=== PATIENT | female | born 1970 | race Caucasian/White ===

== ENCOUNTER 2016-07-27 09:09 | Inpatient (IN) | payer OTHER ==
[2016-07-27] MEDS ORDERED: ONDANSETRON 4 MG/2 ML VIAL ONE ×2 (09:15→14:43)
--- NOTE | 2016-07-27 09:27 | PDOC ---
History of Present Illness - General History Source: Patient Exam Limitations: No Limitations - History of Present Illness Initial Comments: 07/27/16 11:14 The patient is a 46 year old female with a significant past medical history of pancreatitis, Hepatitis C and HIV (no change in medication) who presents to the ED, via EMS, who presents to the ED with complaints of constant abdominal pain and persistent vomiting for a week. The patient reports diffuse abdominal pain that has progressively worsened in her lower quadrant. Patient reports her abdominal pain radiates to her lower back. She describes the pain as a knife stabbing her. Patient notes diaphoresis secondary to pain. She also reports multiple episodes of vomiting persistent of white and yellow sputum. She states her stool is soft and watery. The patient reports her symptoms are worsened secondary to eating. Patient states the last time she had pancreatitis was 3-4 years ago. The patient had an appointment with Dr. Bray later today to check her pancreas but came into the ED secondary to pain. . Denies fevers or chills. Denies chest pain or shortness of breath. Denies abdominal distension or hematochezia. Allergies: Morphine (rashes), shellfish. Last Menstrual period: 8 years ago secondary to early menopause <Joseph Baeza - Last Filed: 07/27/16 13:53> <Moe Bullock - Last Filed: 07/31/16 09:12> - General Chief Complaint: Pain, Acute Stated Complaint: ABD PAIN Time Seen by Provider: 07/27/16 09:18 Past History <Joseph Baeza - Last Filed: 07/27/16 13:53> - Past Medical History Anemia: No Asthma: No Cancer: No Cardiac Disorders: No CVA: No COPD: No CHF: No Dementia: No Diabetes: No GI Disorders: Yes (pancreatitis) Disorders: No HTN: No Hypercholesterolemia: No HIV: Yes Liver Disease: Yes Psychiatric Problems: Yes (Multiple hospitalizations since age 11.) Seizures: No Thyroid Disease: No Other medical history: hiatial hernia - Surgical History Abdominal Surgery: No Appendectomy: No Cardiac Surgery: No Cholecystectomy: No Lung Surgery: No Neurologic Surgery: No Orthopedic Surgery: Yes (L. Knee) - Psycho/Social/Smoking Cessation Hx Anxiety: Yes Suicidal Ideation: No Smoking Status: Yes Smoking History: Current every day smoker Have you smoked in the past 12 months: Yes Number of Cigarettes Smoked Daily: 20 If you are a former smoker, when did you quit?: 03/15/2013 Cigars Per Day: 0 Information on smoking cessation initiated: No 'Breaking Loose' booklet given: 07/14/12 Hx Alcohol Use: No Drug/Substance Use Hx: Yes Substance Use Type: Marijuana Hx Substance Use Treatment: No <Moe Bullock - Last Filed: 07/31/16 09:12> - Past Medical History Allergies/Adverse Reactions: Allergies Allergy/AdvReac Type Severity Reaction Status Date / Time iodine Allergy Swelling Verified 07/27/16 09:12 morphine Allergy Hives Verified 07/27/16 09:12 shellfish derived Allergy Swelling Verified 07/27/16 09:12 Home Medications: Ambulatory Orders Emtricitab/Rilpiviri/Tenof Ala [Odefsey Tablet] 200 tab PO HS 07/27/16 Omeprazole 40 mg PO DAILY 07/27/16 Review of Systems - Review of Systems Able to Perform ROS?: Yes Comments:: 07/27/16 11:14 CONSTITUTIONAL: + diaphoresis No reported: Fever, Chills, Generalized Weakness, Malaise, Loss of Appetite HEENT: No reported: Rhinorrhea, Nasal Congestion, Throat Pain, Throat Swelling, Difficulty Swallowing, Mouth Swelling, Ear Pain, Eye Pain, Visual Changes CARDIOVASCULAR: No reported: Chest Pain, Syncope, Palpitations, Irregular Heart Rate, Lightheadedness, Peripheral Edema RESPIRATORY: No reported: Cough, Shortness of Breath, SOB with Exertion, Orthopnea, Wheezing , Stridor, Hemoptysis GASTROINTESTINAL: + abdominal pain, nausea, vomiting, diarrhea No reported: Abdominal Distension, Constipation, Melena, Hematochezia GENITOURINARY: No reported: Dysuria, Frequency, Urgency, Hesitancy, Flank Pain, Genital Pain MUSCULOSKELETAL: No reported: Myalgia, Arthralgia, Joint Swelling, Back pain, Neck Pain SKIN: No reported: Rash, Itching, Pallor HEMEATOLOGIC/IMMUNOLOGIC: No reported: Easy Bleeding, Easy Bruising, Lymphadenopathy, Frequent infections ENDOCRINE: No reported: Unexplained Weight Gain, Unexplained Weight Loss, Heat Intolerance , Cold Intolerance NEUROLOGIC: No reported: Headache, Focal Weakness, Paresthesias, Vertigo, Lightheadedness, Unsteady Gait, Seizure, Mental Status Changes, Incontinence PSYCHIATRIC: No reported: Anxiety, Depression All Other Systems: Reviewed and Negative <Joseph Baeza - Last Filed: 07/27/16 13:53> *Physical Exam - Vital Signs Last Vital Signs Temp Pulse Resp BP Pulse Ox 97.8 F 85 20 158/85 99 07/27/16 09:12 07/27/16 09:12 07/27/16 09:12 07/27/16 09:12 07/27/16 09:12 - Physical Exam Comments: 07/27/16 11:14 GENERAL: + appears uncomfortable. The patient is awake, alert, and fully oriented, Nontoxic. HEAD: Normocephalic, atraumatic. EYES: extraocular movements intact, sclera anicteric, conjunctiva clear. ENT: Normal voice, Moist mucous membranes. NECK: Normal range of motion, supple LUNGS: Breath sounds equal, clear to auscultation bilaterally. No wheezes, no rhonchi, no rales. HEART: Regular rate and rhythm, without murmur, rub or gallop. ABDOMEN: + Diffuse mid abdominal tenderness with voluntary guarding. Soft, normoactive bowel sounds. No rebound.No CVA tenderness EXTREMITIES: Normal range of motion, no edema. No clubbing or cyanosis. No cords, erythema, or tenderness. NEUROLOGICAL: No facial assymetry, Normal speech, PSYCH: Normal mood, normal affect. SKIN: Warm, Dry, normal turgor, <Joseph Baeza - Last Filed: 07/27/16 13:53> - Vital Signs Last Vital Signs Temp Pulse Resp BP Pulse Ox 97.8 F 85 20 158/85 99 07/27/16 09:12 07/27/16 09:12 07/27/16 09:12 07/27/16 09:12 07/27/16 09:12 <Moe Bullock - Last Filed: 07/31/16 09:12> Heart Score/ECG Review - ECG Impressions Comment:: 07/27/16 11:07 Twelve-lead EKG was performed and reviewed by me. There is normal sinus rhythm with a normal rate. Rate of 66 The axis is normal. The intervals are normal. There is normal R wave progression There are no ST or T wave abnormalities. Impression: Normal twelve-lead EKG <Moe Bullock - Last Filed: 07/31/16 09:12> ED Treatment Course - LABORATORY CBC & Chemistry Diagram: 07/27/16 09:35 07/27/16 10:04 - ADDITIONAL ORDERS Additional order review: Laboratory Results 07/27/16 09:50 Lactic Acid 1.249 07/27/16 09:35 RBC 4.97 MCV 100.7 H MCHC 33.8 RDW 13.3 MPV 9.7 Neutrophils % 78.2 D Lymphocytes % 17.4 D Monocytes % 3.6 L Eosinophils % 0.3 D Basophils % 0.5 - RADIOLOGY Radiograph Interpretation: 07/27/16 13:53 RAD/ABDOMEN FLAT & UPRIGHT Impression: No free air delineated Reported by: Santiago Frausto RAD/CHEST PA & LAT Impression: No evidence of active pulmonary disease. Reported by : Errol Matthews CT/ABDOMEN & PELVIS CT W/O CONTR Impression: Distention of the stomach with contrast. It could be related to the time of ingestion of contrast but could also represent a partial gastric outlet obstruction as contrast does extend more distally including to the colon and rectum. Diffuse wall thickening of the colon suggestive of mild colitis as well is diverticulosis in the sigmoid without evidence of diverticulitis. Scattered calcifications in the tail of the pancreas suggestive of chronic pancreatitis. Reported by: Liberty Frausto - Medications Given in the ED: ED Medications Discontinued Medications Generic Name Dose Route Start Last Admin Trade Name [place] PRN Reason Stop Dose Admin Hydromorphone HCl 1 mg 07/27/16 09:43 07/27/16 10:19 Dilaudid Injection - IVPUSH 07/27/16 09:44 1 mg ONCE ONE Administration Hydromorphone HCl 1 mg 07/27/16 10:07 07/27/16 10:10 Dilaudid Injection - IM 07/27/16 10:08 1 mg ONCE ONE Administration Sodium Chloride 1,000 mls @ 1,000 mls/hr 07/27/16 09:44 07/27/16 10:19 Normal Saline - IV 07/27/16 10:43 1,000 mls/hr .Q1H ONE Administration <Joseph Baeza - Last Filed: 07/27/16 13:53> - LABORATORY CBC & Chemistry Diagram: 07/28/16 06:30 07/28/16 06:30 <Moe Bullock - Last Filed: 07/31/16 09:12> Medical Decision Making - Medical Decision Making 07/27/16 13:[address] Bray at 13:52. <Joseph Baeza - Last Filed: 07/27/16 13:53> - Medical Decision Making 07/27/16 09:45 46y F hx of HIV, HCV, pancreeatis, presents with 1 week of worsening mid abdominal pain associated with nausea/vomiting, pt states kathy feels like a sharp pain to her back. On exam pt appears uncomfortable, has voluntary garuding , rm1annn were normal. differential includes pancreatitis, kidney stones, gall stones, enteritis will treat pt sypmtomatically with Fluids/zofran/analgesics will obtain flat and upright to r/o free air will obtain labs, ekg, ua anticipate further imaging A portion of this note was documented by scribe services under my direction. I have reviewed the details of the note, within reason, and agree with the documentation with the following case summary and management plan written by me 07/27/16 11:36 pts albs were reivewed cxr and abd xray reveals no signs of free air or signs of obstruction will obtain CT abdomen to r/o acute process the pt appears more comfortable at this time no more guarding/rebound 07/27/16 13:[address] reveals distension of the stomah with contrast - differntial includes time of ingestion of contrast vs partial gastric outlet obstruction as well as mild difufse colitis- will PO challenge the patient. Suspect the pts sypmtoms may have been secondary to the prior as hte pt got the CT at less than the 2 hr valery as pt was threatening to leave. If the patient is able to tolerate oral intake will dc the pt with abx for colitis. caes dw dr. morejon - would recommend sending stool cultures and o&p. 07/27/16 14:23 pt refusing IV abx states she does not want to stay for it currently PO challenging the patient. 07/27/16 14:39 The pt unable to tolerate oral intake vomiting now will admit for further management of vomiting and possible gastric outlet syndrome will admit to hosplitalist service for further management. <Moe Bullock - Last Filed: 07/31/16 09:12> *DC/Admit/Observation/Transfer - Attestations Scribe Attestion: 07/27/16 11:14 Documentation prepared by Joseph Baeza, acting as biomedical field service engineer for Moe Bullock MD <Joseph Baeza - Last Filed: 07/27/16 13:53> - Discharge Dispostion Admit: Yes <Moe Bullock - Last Filed: 07/31/16 09:12> Diagnosis at time of Disposition: HIV (human immunodeficiency virus infection), Partial gastric outlet obstruction, Colitis - Discharge Dispostion Disposition: HOME Condition at time of disposition: Good - Referrals
[2016-07-27] MEDS ORDERED: HYDROmorphone HCL CARPU-JECT 2 MG/1 ML DISP.SYRIN IVPUSH ONE ×2 (09:43→14:40)
[2016-07-27] MEDS ORDERED: HYDROmorphone HCL CARPU-JECT 1 MG/1 ML DISP.SYRIN ONE ×3 (09:44→14:43)
[2016-07-27] MEDS ORDERED: SODIUM CHLORIDE 1,000 ML IV ONE (09:44)
[2016-07-27] MEDS ORDERED: HYDROmorphone HCL CARPU-JECT 1 MG/1 ML DISP.SYRIN IM ONE (10:07)
[2016-07-27 10:13] LABS: BASOPHIL 0.5 % (0-2.0); EOSINOPHIL 0.3 % (0-4.5); MCHC 33.8 g/dl (32.0-36.0); MEAN CELL VOLUME 100.7 fl (80-96); MEAN PLT VOLUME 9.7 fl (7.5-11.1); NEUTROPHILS 78.2 % (42.8-82.8); PLATELET COUNT 117 K/MM3 (134-434); RDW 13.3 % (11.6-15.6); WHITE BLOOD COUNT 7.9 K/mm3 (4.0-10.0)
[2016-07-27 11:01] LABS: ALBUMIN 4.9 g/dl (3.4-5.0); BILIRUBIN,TOTAL 0.4 mg/dL (0.2-1.0); CALCIUM 9.7 mg/dL (8.5-10.1); CREATININE 1.2 mg/dL (0.55-1.02)
[2016-07-27 11:02] LABS: TOT PROT 9.5 g/dl (6.4-8.2)
--- NOTE | 2016-07-27 11:46 | EKG ---
Test Reason : Blood Pressure : / mmHG Vent. Rate : 066 BPM Atrial Rate : 066 BPM P-R Int : 134 ms QRS Dur : 078 ms QT Int : 420 ms P-R-T Axes : 082 054 076 degrees QTc Int : 440 ms SINUS RHYTHM WITH MARKED SINUS ARRHYTHMIA OTHERWISE NORMAL ECG WHEN COMPARED WITH ECG OF 14-JUL-2012 17:32, NONSPECIFIC T WAVE ABNORMALITY NO LONGER EVIDENT IN ANTERIOR LEADS Confirmed by LAI CRUZ, YANET ([id number]) on 07/27/2016 11:45:52 AM Referred By: Confirmed By:YANET HOYT MD
[2016-07-27] MEDS: METRONIDAZOLE 500 MG PREMIXED 100 ML IVPB ONE ×2 (14:23→14:39)
[2016-07-27] MEDS: LEVOFLOXACIN 750 MG IVPB 150 ML IVPB ONE ×3 (14:23→17:00)
[2016-07-27] MEDS ORDERED: metroNIDAZOLE 250 MG TABLET ONE (14:29)
[2016-07-27] MEDS ORDERED: LEVOFLOXACIN 500 MG TABLET (FP) ONE (14:29)
[2016-07-27] MEDS: metroNIDAZOLE 250 MG TABLET PO ONE ×2 (14:30→14:33)
[2016-07-27] MEDS ORDERED: LEVOFLOXACIN 250 MG TABLET (FP) ONE (14:30)
[2016-07-27] MEDS: LEVOFLOXACIN 750 MG TABLET PO ONE ×2 (14:30→14:34)
[2016-07-27] MEDS ORDERED: METRONIDAZOLE 500 MG PREMIXED 100 ML IVPB ONE (14:39)
[2016-07-27] MEDS ORDERED: ONDANSETRON 4 MG/2 ML VIAL IVPB ONE (14:40)
[2016-07-27] MEDS ORDERED: LEVOFLOXACIN 750 MG IVPB 150 ML IVPB ONE (16:02)
--- NOTE | 2016-07-27 17:18 | PN ---
Teaching Attending Note Name of Resident: Roma Keenan ATTENDING PHYSICIAN STATEMENT I saw and evaluated the patient. I reviewed the resident's note and discussed the case with the resident. I agree with the resident's findings and plan as documented. Patient is c/o having abdominal pain with nausea and vomiting, no headache ,no shortness of breath Vital Signs Temperature 98.3 F 07/27/16 12:39 Pulse Rate 77 07/27/16 16:25 Respiratory Rate 19 07/27/16 16:25 Blood Pressure 135/94 07/27/16 16:25 O2 Sat by Pulse Oximetry (%) 98 07/27/16 16:25 CBCD WBC 7.9 K/mm3 (4.0-10.0) 07/27/16 09:35 RBC 4.97 M/mm3 (3.60-5.2) 07/27/16 09:35 Hgb 16.9 GM/dL (10.7-15.3) H D 07/27/16 09:35 Hct 50.0 % (32.4-45.2) H 07/27/16 09:35 MCV 100.7 fl (80-96) H 07/27/16 09:35 MCHC 33.8 g/dl (32.0-36.0) 07/27/16 09:35 RDW 13.3 % (11.6-15.6) 07/27/16 09:35 Plt Count 117 K/MM3 (134-434) L 07/27/16 09:35 MPV 9.7 fl (7.5-11.1) 07/27/16 09:35 CMP Sodium 138 mmol/L (136-145) 07/27/16 10:04 Potassium 4.1 mmol/L (3.5-5.1) 07/27/16 10:04 Chloride 101 mmol/L (98-107) 07/27/16 10:04 Carbon Dioxide 27 mmol/L (21-32) 07/27/16 10:04 Anion Gap 10 (8-16) 07/27/16 10:04 BUN 11 mg/dL (7-18) D 07/27/16 10:04 Creatinine 1.2 mg/dL (0.55-1.02) H 07/27/16 10:04 Creat Clearance w eGFR 47.95 (>60) 07/27/16 10:04 Random Glucose 122 mg/dL (74-106) H 07/27/16 10:04 Calcium 9.7 mg/dL (8.5-10.1) 07/27/16 10:04 Total Bilirubin 0.4 mg/dL (0.2-1.0) D 07/27/16 10:04 AST 28 U/L (15-37) 07/27/16 10:04 ALT 33 U/L (12-78) 07/27/16 10:04 Alkaline Phosphatase 135 U/L (45-117) H 07/27/16 10:04 Total Protein 9.5 g/dl (6.4-8.2) H 07/27/16 10:04 Albumin 4.9 g/dl (3.4-5.0) 07/27/16 10:04 Home Medications Medication Instructions Recorded Emtricitab/Rilpiviri/Tenof Ala 1 each PO DAILY #30 tablet 07/26/16 [Odefsey Tablet] ROS/PE per resident notes ASSESSMENT AND PLAN: Patient is a 46yo F admitted through [facility] ER today for evaluation of nausea, vomiting, abdominal pain and diarrhea. The patient states that this has been occurring since saturday. Patient has a PMHx of HIV , Hep C (treated), chronic pancreatitis. # Acute Dehydration On IVF now # Acute nausea & vomiting On IVF, zofran prn # Possible Colitis will monitor on CT scan , will hold off on any antibiotics for now, as per GI to hold off the antibiotic for now, discussed with # Acute Diarrhea earlier but no further diarrhea , if persists stool for cdiff and stool culture to be send # hx of smoking on nicotine patch # Hx of HIV continue meds ID on the case # Hx of Hep C treated # hx of Chronic pancreatitis DVt Px: Scds
[2016-07-27] MEDS ORDERED: ONDANSETRON 4 MG/2 ML VIAL IVPUSH PRN (17:39)
--- NOTE | 2016-07-27 17:39 | PN ---
Physical Exam: SUBJECTIVE: Patient seen and examined OBJECTIVE: Vital Signs Period Temp Pulse Resp BP Sys/Ward Pulse Ox Last 24 Hr 77 19 135/94 98 GENERAL: The patient is awake, alert, and fully oriented, in no acute distress. HEAD: Normal with no signs of trauma. EYES: PERRL, extraocular movements intact, sclera anicteric, conjunctiva clear. No ptosis. ENT: Ears normal, nares patent, oropharynx clear without exudates, moist mucous membranes. NECK: Trachea midline, full range of motion, supple. LUNGS: Breath sounds equal, clear to auscultation bilaterally, no wheezes, no crackles, no accessory muscle use. HEART: Regular rate and rhythm, S1, S2 without murmur, rub or gallop. ABDOMEN: Soft, nontender, nondistended, normoactive bowel sounds, no guarding, no rebound, no hepatosplenomegaly, no masses. EXTREMITIES: 2+ pulses, warm, well-perfused, no edema. NEUROLOGICAL: Cranial nerves II through XII grossly intact. Normal speech, gait not observed. PSYCH: Normal mood, normal affect. SKIN: Warm, dry, normal turgor, no rashes or lesions noted Active Medications Generic Name Dose Route Start Last Admin Trade Name Freq PRN Reason Stop Dose Admin Ceftriaxone Sodium 1 gm 07/28/16 10:00 Rocephin 1gm Ivpb (Pre-Docked) IVPB DAILY [facility] Protocol Hydromorphone HCl 0.5 mg 07/27/16 17:29 Dilaudid Injection - IVPB Q3H PRN PAIN Sodium Chloride 1,000 mls @ 175 mls/hr 07/27/16 17:30 Normal Saline - IV ASDIR SHARON Metronidazole 500 mg 07/27/16 22:00 Flagyl - PO BID [facility] ASSESSMENT/PLAN:
--- NOTE | 2016-07-27 17:43 | CON.GI ---
Consult Consult Specialty:: GI Referred by:: Hospitalists Reason for Consultation:: Abdominal pain - History of Present Illness Chief Complaint: "I was having abdominal pain, nauseous, vomiting and pooping alot from saturday" History of Present Illness: 46F admitted through [facility] ER today for evaluation of nausea, vomiting, abdominal pain and diarrhea. The patient states that this has been occurring since saturday. She coincidentally had an appointment to see Dr. Bray today ( having been referred by her primary Khurram Ram NP from the [facility]) however she came to the ER instead. She believes that she had an upper endoscopy some years ago that revealed a hiatal hernia. She describes chills. there have been no reported fevers since admission. There has been no diarrhea or vomiting since admission. The CT scan in the ER questioned a partial gastric outlet obstruction due to gastric distention with contrast however there appeared to be contrast in the colon and she was given Dilaudid in the ER prior to the CT scan. She denies rectal bleeding. she denies recent antibiotic use, travel or change in dietary patterns There is no family history of colorectal cancer or other GI malignancy. She has HIV on ART and denies a recent change to her medication regimen. Her current CD4 count is unclear. - History Source History Provided By: Patient Limitations to Obtaining History: No Limitations - Past Medical History Gastrointestinal: Yes: Hiatal Hernia Hepatobiliary: Yes: Hepatitis C Infectious Disease: Yes: HIV - Past Surgical History Past Surgical History: Yes: None - Alcohol/Substance Use Hx Alcohol Use: Yes (states drinking heavily, quit age 15) History of Substance Use: reports: Marijuana (briefly in past) - Smoking History Smoking history: Current every day smoker Have you smoked in the past 12 months: Yes Aproximately how many cigarettes per day: 20 If you are a former smoker, when did you quit?: 03/15/2013 - Social History Usual Living Arrangement: Other () ADL: Independent Occupation: Unemployed Place of : [place] History of Recent Travel: No Home Medications - Allergies Allergies/Adverse Reactions: Allergies Allergy/AdvReac Type Severity Reaction Status Date / Time iodine Allergy Swelling Verified 07/27/16 09:12 morphine Allergy Hives Verified 07/27/16 09:12 shellfish derived Allergy Swelling Verified 07/27/16 09:12 - Home Medications Home Medications: Ambulatory Orders Emtricitab/Rilpiviri/Tenof Ala [Odefsey Tablet] 1 tab PO HS 07/27/16 Omeprazole 40 mg PO DAILY 07/27/16 Family Disease History - Family Disease History Family Disease History: Other: Father ( 70: CT), Mother ( 62: CVA), Sister (x 2 1 with CAD, 1 with DM II), Son (1, healthy) Other Family History: No family history of colorectal cancer or other Gi malignancy Review of Systems - Review of Systems Constitutional: reports: Chills. denies: Fever, Unintentional Wgt. Loss Cardiovascular: denies: Chest Pain Respiratory: denies: Cough, SOB Gastrointestinal: reports: Abdominal Pain, Diarrhea, Nausea, Vomiting. denies: Constipation, Dysphagia, Rectal Bleeding, Vomiting Blood Physical Exam-GI Vital Signs: Vital Signs Temperature 98.3 F 07/27/16 12:39 Pulse Rate 77 07/27/16 16:25 Respiratory Rate 19 07/27/16 16:25 Blood Pressure 135/94 07/27/16 16:25 O2 Sat by Pulse Oximetry (%) 98 07/27/16 16:25 Constitutional: Yes: Calm Eyes: Yes: Sclera Icterus Cardiovascular: Yes: Regular Rate and Rhythm Respiratory: Yes: CTA Bilaterally Gastrointestinal Inspection: No: Scars ...Auscultate: Yes: Normoactive Bowel Sounds ...Palpate: Yes: Tenderness (mid abdomen). No: Guarding, Hepatomegaly, Splenomegaly, Tenderness, Rebound ...Rectal Exam: Yes: Guaiac Negative ( trace formed light brown stool in rectal vault) Problem List - Problems (1) Nausea & vomiting Assessment/Plan: Along with diarrhea No N/V/D currently ? AGE CT scan findings: I ? if this is related to opiate analgesia prior to CT scan leading to a component of gastroparesis Alp slightly elevated as well Advise: Clear liquid diet FUA in AM to assess ic contrast still in stomach / persistent gastric distention Ordered UGIS with gastrograffin for saturday Stool for C. Diff O&P, culture if diarrhea persists Obtain info re: HIV status from [facility] ALP is elevated: Check abd US Wean off opiate analgesia Code(s): R11.2 - NAUSEA WITH VOMITING, UNSPECIFIED
[2016-07-27 17:51] VITALS: BMI 19.4
--- NOTE | 2016-07-27 17:51 | HP ---
CHIEF COMPLAINT: "my stomach hurts" PCP: Dr Khurram Ram HISTORY OF PRESENT ILLNESS: This is a 46 yo F with PMH of HIV (odefsey), Hep C (treated), chronic pancreatitis and psychiatric issues, who presents due to Severe abd pain, vomiting and diarrhea. The pain has been persistantly presetn for over a week and worsened on saturday. Today she started vominting (NBNB, 10 ep) and having brown, nonbloody nonmelenous diarrhea. Her abd pain is in b/l lower quadrants, radiating to her back. it is constatnt and stabbing. She reports diaphoresis but no fever. she has not experienced these symptoms before. She deneis sick contacts or eating new foods/taking new meds. She has lost her appetite. Her last ep of pancreatitins was in 2012 at [facility]. Her GI is Dr Bray, with whom she had an apt today but came to ED instead. She has had an endoscopy a long time ago and was diagnosed with hernia (possibly hiatal). Her only home med is odefsey. She states that her viral load is undetectable. She has a chronic dry cough. She denies chest pain, sob, palpitations, LE edema, dysuria, h/a. CT abd in ED shown possible gastric outlet obstruction and mild colitis ER course was notable for: (1) ekg,labs (2)cxr, abd xr, abd ct (3)PO flagyl, IV levaquin, IVFNS, zofran Recent Travel: denies PAST MEDICAL HISTORY: as above PAST SURGICAL HISTORY: L knee carmella Social History: lives with boyfriend Smoking: current smoker 20 cig/d Alcohol: denies Drugs: occasional marijuana Family History: unknown Allergies iodine Allergy (Verified 07/27/16 09:12) Swelling morphine Allergy (Verified 07/27/16 09:12) Hives shellfish derived Allergy (Verified 07/27/16 09:12) Swelling HOME MEDICATIONS: Home Medications Medication Instructions Recorded Emtricitab/Rilpiviri/Tenof Ala 1 each PO DAILY #30 tablet 07/26/16 [Odefsey Tablet] REVIEW OF SYSTEMS CONSTITUTIONAL: Absent: fever Absent: rhinorrhea, nasal congestion, throat pain CARDIOVASCULAR: Absent: chest pain, syncope, palpitations RESPIRATORY: Absent: shortness of breath, orthopnea GASTROINTESTINAL: Absent: constipation, melena, hematochezia GENITOURINARY: Absent: dysuria, frequency, urgency MUSCULOSKELETAL: Absent: myalgia, arthralgia SKIN: Absent: rash, itching, pallor HEMATOLOGIC/IMMUNOLOGIC: Absent: frequent infections ENDOCRINE: Absent: unexplained weight gain, unexplained weight loss NEUROLOGIC: Absent: headache, focal weakness or paresthesias, dizziness PSYCHIATRIC: Absent: anxiety, depression PHYSICAL EXAMINATION Vital Signs - 24 hr 07/27/16 16:25 Pulse Rate [ 77 Apical] Respiratory 19 Rate Blood Pressure 135/94 [Right Arm] O2 Sat by Pulse 98 Oximetry (%) Laboratory Tests 07/27/16 07/27/16 07/27/16 09:35 09:50 10:04 WBC 7.9 Hgb 16.9 H D Hct 50.0 H Plt Count 117 L Neutrophils % 78.2 D Lymphocytes % 17.4 D Monocytes % 3.6 L Sodium 138 Potassium 4.1 Chloride 101 Carbon Dioxide 27 Anion Gap 10 BUN 11 D Creatinine 1.2 H Creat Clearance w eGFR 47.95 Random Glucose 122 H Lactic Acid 1.249 Calcium 9.7 Total Bilirubin 0.4 D AST 28 ALT 33 Alkaline Phosphatase 135 H Total Protein 9.5 H Albumin 4.9 Lipase 274 GENERAL: Awake, alert, and fully oriented, in no acute distress. HEAD: Normal with no signs of trauma. EYES: Pupils equal, round and reactive to light, extraocular movements intact, sclera anicteric, conjunctiva clear. EARS, NOSE, THROAT: slightly dry mucous membranes. NECK: supple LUNGS: diffusely restricted air entry, mild wheezes, bibasilar crackles HEART: Regular rate and rhythm, normal S1 and S2 ABDOMEN: Soft, moderately tender especially in lower quadrants, not distended, normoactive bowel sounds, voluntary guarding, no rebound, no masses. No hepatomegaly or splenomegaly. GILMA trace brown stool, no lesions noted, no obvious blood MUSCULOSKELETAL: No CVA tenderness. UPPER EXTREMITIES: 2+ pulses, warm, well-perfused. No cyanosis. No clubbing. No peripheral edema. LOWER EXTREMITIES: 2+ pulses, warm, well-perfused. No calf tenderness. No peripheral edema. NEUROLOGICAL: Cranial nerves II-XII grossly intact. Normal speech. PSYCHIATRIC: Cooperative. Good eye contact. SKIN: Warm, dry ASSESSMENT/PLAN: This is a 46 yo F with PMH of HIV (odefsey), Hep C (treated), chronic pancreatitis and psychiatric issues, who presents due to Severe abd pain, vomiting and diarrhea. Infectious colitis -afebrile, no leukocytosis -c diff -stool oova, parasites, gram stain, leukocytes -blood, urine culture -NPO -PO Flagyl, IV rocephin -NS @175-dehydrated -dilaudid 0.5 q 3 hr prn, would stop verna. -IV tylenol -GI consult -Carmella Contult possible gastric outlet obstruction -possibly appears that way due to opiates -consider re scanning tomorrow -NGT PRN HIV -ID consult -hold odefsey -CD4 Hep C -treated Chronic pancreatitis -no apparent flare up Psych -stable FEN NS@175 lytes stable NPO PPI, SCD Dispo: med carmella Problem List - Problem (1) Colitis Code(s): K52.9 - NONINFECTIVE GASTROENTERITIS AND COLITIS, UNSPECIFIED (2) Nausea & vomiting Code(s): R11.2 - NAUSEA WITH VOMITING, UNSPECIFIED (3) Partial gastric outlet obstruction Code(s): K31.1 - ADULT HYPERTROPHIC PYLORIC STENOSIS (4) HIV (human immunodeficiency virus infection) Code(s): Z21 - ASYMPTOMATIC HUMAN IMMUNODEFICIENCY VIRUS INFECTION STATUS (5) Abdominal pain Code(s): R10.9 - UNSPECIFIED ABDOMINAL PAIN (6) Hepatitis C Code(s): B19.20 - UNSPECIFIED VIRAL HEPATITIS C WITHOUT HEPATIC COMA Visit type - Emergency Visit Emergency Visit: Yes ED Registration Date: 07/27/16 Care time: The patient presented to the Emergency Department on the above date and was hospitalized for further evaluation of their emergent condition. - New Patient This patient is new to me today: Yes Date on this admission: 07/27/16 - Critical Care Critical Care patient: No
[2016-07-27] MEDS ORDERED: ACETAMINOPHEN 1000 MG/100 ML VIAL (NON FORMULARY) IVPB PRN (18:40)
[2016-07-27] MEDS: SODIUM CHLORIDE 1,000 ML IV SCH (18:47)
[2016-07-27] MEDS: HYDROmorphone HCL CARPU-JECT 1 MG/1 ML DISP.SYRIN IVPB PRN ×2 (18:48→22:38)
[2016-07-27] MEDS: NICOTINE 14 MG/24 HOURS TOPICAL PATCH TD SCH (18:48)
[2016-07-27] MEDS ORDERED: metroNIDAZOLE 250 MG TABLET PO SCH (22:00)
[2016-07-27 22:25] LABS: URINE APPEARANCE CLEAR; URINE BILIRUBIN NEGATIVE (NEGATIVE); URINE BLOOD NEGATIVE (NEGATIVE); URINE COLOR LTYELLOW; URINE GLUCOSE (UA) NEGATIVE (NEGATIVE); URINE KETONE NEGATIVE (NEGATIVE); URINE LEUK ESTERASE NEGATIVE (NEGATIVE); URINE NITRITE NEGATIVE (NEGATIVE); URINE PROTEIN NEGATIVE (NEGATIVE); URINE UROBILINOGEN NEGATIVE E.U./dl (0.2-1.0)
[2016-07-28] MEDS: SODIUM CHLORIDE 1,000 ML IV SCH ×3 (01:38→17:43)
[2016-07-28] MEDS: HYDROmorphone HCL CARPU-JECT 1 MG/1 ML DISP.SYRIN IVPB PRN ×5 (01:42→21:23)
[2016-07-28 09:04] LABS: ALBUMIN 3.1 g/dl (3.4-5.0); ANION GAP 11 (8-16); CALCIUM 7.8 mg/dL (8.5-10.1); CO2 23 mmol/L (21-32); GLUCOSE,RANDOM 95 mg/dL (74-106); PHOSPHOROUS 2.9 mg/dL (2.5-4.9)
[2016-07-28 09:16] LABS: CREATININE 0.9 mg/dL (0.55-1.02); MAGNESIUM 1.8 mg/dL (1.8-2.4); TOT PROT 6.3 g/dl (6.4-8.2)
[2016-07-28 09:17] LABS: ALK PHOS 87 U/L (45-117); BILIRUBIN,TOTAL 0.3 mg/dL (0.2-1.0); SGOT/AST 28 U/L (15-37); SGPT/ALT 25 U/L (12-78)
[2016-07-28 09:32] LABS: BASOPHIL 0.7 % (0-2.0); EOSINOPHIL 1.6 % (0-4.5); MCH 34.1 pg (25.7-33.7); MCHC 33.5 g/dl (32.0-36.0); MEAN CELL VOLUME 101.7 fl (80-96); MEAN PLT VOLUME 9.9 fl (7.5-11.1); NEUTROPHILS 55.7 % (42.8-82.8); RDW 13.1 % (11.6-15.6); WHITE BLOOD COUNT 6.8 K/mm3 (4.0-10.0)
[2016-07-28] MEDS ORDERED: PANTOPRAZOLE SODIUM 40 MG in SODIUM CHLORIDE 100 ML IVPB SCH (10:00)
[2016-07-28] MEDS ORDERED: cefTRIAXone 1 GM/50 ML BAG (PRE-DOCKED) IVPB SCH (10:00)
[2016-07-28] MEDS: PANTOPRAZOLE SODIUM 40 MG/100 ML PRE-DOCKED IVPB SCH (10:06)
[2016-07-28] MEDS: NICOTINE 14 MG/24 HOURS TOPICAL PATCH TD SCH (10:06)
[2016-07-28 11:13] LABS: PLATELET COMMENT2 UNABLE TO ENUMERATE; PLATELET ESTIMATE DECREASED (NORMAL)
--- NOTE | 2016-07-28 11:14 | PN ---
Progress Note (short form) - Note Progress Note: Continues to c/o having abdominal pain, going for GI series Temperature 97.8 F 07/28/16 06:00 Pulse Rate 72 07/28/16 06:00 Respiratory Rate 18 07/28/16 06:00 Blood Pressure 107/67 07/28/16 06:00 O2 Sat by Pulse Oximetry (%) 98 07/27/16 21:00 GENERAL: Awake, alert, and fully oriented, in no acute distress. HEAD: Normal with no signs of trauma. EYES: Pupils equal, round and reactive to light, EOMI, sclera anicteric, conjunctiva clear. EARS, NOSE, THROAT: slightly dry mucous membranes. NECK: supple , no JVD LUNGS: diffusely restricted air entry, mild wheezes, bibasilar crackles HEART: Regular rate and rhythm, normal S1 and S2 ABDOMEN: Soft, mild tendereness , not distended, normoactive bowel sounds, no rebound, no masses. No hepatomegaly or splenomegaly. MUSCULOSKELETAL: No CVA tenderness. EXTREMITIES: 2+ pulses, warm, well-perfused. No cyanosis. No clubbing. No peripheral edema. NEUROLOGICAL: Cranial nerves II-XII grossly intact. Normal speech. PSYCHIATRIC: Cooperative. Good eye contact. SKIN: Warm, dry, good turgor. CBCD WBC 6.8 K/mm3 (4.0-10.0) 07/28/16 06:30 RBC 4.04 M/mm3 (3.60-5.2) 07/28/16 06:30 Hgb 13.8 GM/dL (10.7-15.3) D 07/28/16 06:30 Hct 41.1 % (32.4-45.2) D 07/28/16 06:30 MCV 101.7 fl (80-96) H 07/28/16 06:30 MCHC 33.5 g/dl (32.0-36.0) 07/28/16 06:30 RDW 13.1 % (11.6-15.6) 07/28/16 06:30 Plt Count 117 K/MM3 (134-434) L 07/27/16 09:35 MPV 9.9 fl (7.5-11.1) 07/28/16 06:30 CMP Sodium 141 mmol/L (136-145) 07/28/16 06:30 Potassium 4.0 mmol/L (3.5-5.1) 07/28/16 06:30 Chloride 107 mmol/L (98-107) 07/28/16 06:30 Carbon Dioxide 23 mmol/L (21-32) 07/28/16 06:30 Anion Gap 11 (8-16) 07/28/16 06:30 BUN 8 mg/dL (7-18) D 07/28/16 06:30 Creatinine 0.9 mg/dL (0.55-1.02) D 07/28/16 06:30 Creat Clearance w eGFR > 60 (>60) 07/28/16 06:30 Random Glucose 95 mg/dL (74-106) D 07/28/16 06:30 Calcium 7.8 mg/dL (8.5-10.1) L 07/28/16 06:30 Total Bilirubin 0.3 mg/dL (0.2-1.0) D 07/28/16 06:30 AST 28 U/L (15-37) 07/28/16 06:30 ALT 25 U/L (12-78) D 07/28/16 06:30 Alkaline Phosphatase 87 U/L (45-117) D 07/28/16 06:30 Total Protein 6.3 g/dl (6.4-8.2) L D 07/28/16 06:30 Albumin 3.1 g/dl (3.4-5.0) L D 07/28/16 06:30 Current Medications Generic Name Dose Route Start Last Admin Trade Name Freq PRN Reason Stop Dose Admin Acetaminophen 1,000 mg 07/27/16 18:40 Ofirmev Injection - IVPB 07/28/16 12:41 Q6H PRN FEVER OR PAIN Hydromorphone HCl 0.5 mg 07/27/16 17:29 07/28/16 10:20 Dilaudid Injection - IVPB 0.5 mg Q3H PRN Administration PAIN Sodium Chloride 1,000 mls @ 175 mls/hr 07/27/16 17:30 07/28/16 09:59 Normal Saline - IV 175 mls/hr ASDIR SHARON Administration Nicotine 14 mg 07/27/16 18:30 07/28/16 10:06 Nicoderm Patch - TD 14 mg DAILY SHARON Administration Pantoprazole Sodium 40 mg 07/28/16 10:00 07/28/16 10:06 Protonix 40mg Ivpb (Pre-Docked) IVPB 40 mg DAILY SHARON Administration Home Medications Medication Instructions Recorded Emtricitab/Rilpiviri/Tenof Ala 1 tab PO HS 07/27/16 [Odefsey Tablet] Omeprazole 40 mg PO DAILY 07/27/16 ASSESSMENT AND PLAN: Patient is a 46yo F admitted through [facility] ER today for evaluation of nausea, vomiting, abdominal pain and diarrhea. The patient states that this has been occurring since saturday. Patient has a PMHx of HIV , Hep C (treated), chronic pancreatitis. # Acute Dehydration continue IVF # Acute nausea & vomiting On IVF, zofran prn # No obvious colitis , no fever or chills, no further diarrhea , patient will go for GI series # Acute Diarrhea earlier but no further diarrhea , stool for cdiff and stool culture if diaarhea persists # hx of smoking on nicotine patch # Hx of HIV continue meds ID on the case # Hx of Hep C treated # hx of Chronic pancreatitis DVt Px: Scds Visit type - Emergency Visit Emergency Visit: Yes ED Registration Date: 07/27/16 Care time: The patient presented to the Emergency Department on the above date and was hospitalized for further evaluation of their emergent condition. - New Patient This patient is new to me today: No - Critical Care Critical Care patient: No
--- NOTE | 2016-07-28 16:11 | PN ---
Progress Note (short form) - Note Progress Note: ID consult dictated imp/reccd 46 riki old female with stable HIV cd4 1354, viral load suppressed since 2012), on Odefsey, admitted with diarrhea and abdominal pain reports continued abd pain, diarrhea resolving, vomting resolved, hungry wants to eat no fevers ct scan noted HIV can continue ART- have asked her to have her boyfriend bring it abd pain and diarrhea resolving vomiting resolved check stool studies (ordered) advance diet hep c treated d/w hospitalist service
--- NOTE | 2016-07-28 17:00 | CONS ---
INFECTIOUS DISEASE CONSULTATION DATE OF CONSULTATION: DATE OF DICTATION: 07/28/2016 REFERRING PHYSICIAN: Hospitalist Service. HISTORY OF PRESENT ILLNESS: This is a 46-year-old woman with stable HIV disease. She is on Odefsey with undetectable viral load since 2012 and most recent CD4 count is 1354. She has a history of hepatitis C that has been treated with suppressed viral load. She has a history of pancreatitis back in 2012. She smokes marijuana. She presents with abdominal pain for 1 week accompanied by vomiting and some diarrhea which she describes as non-bloody and watery. There are no associated fevers or chills. There has been no travel. She has no sick contacts. On admission she had a CAT scan of her abdomen and pelvis done that showed distention of the stomach with contrast and question of mild colitis and some diverticulosis. She had calcifications in the tail of the pancreas suggestive of chronic pancreatitis. She was seen by Gastroenterology and stool studies were ordered. Her vomiting has resolved. She is quite hungry now. She still complains of persistent abdominal discomfort, but is requesting to eat. She reports her diarrhea is resolving. PAST MEDICAL HISTORY: Notable for hiatal hernia, hepatitis C treated, and HIV stable. No surgery. She does have a history of prior pancreatitis. ALLERGIES: SHE IS ALLERGIC TO IODINE, MORPHINE, AND SHELLFISH. MEDICATIONS: She takes Odefsey and omeprazole as an outpatient. FAMILY HISTORY: Notable for coronary artery disease in her father. Mother with CVA. Sister with coronary artery disease and diabetes. SOCIAL HISTORY: She lives up in [place]. She does not work. REVIEW OF SYSTEMS: There are no fevers or chills. She had gained 4 pounds, which she has lost with this acute illness. She is very adherent with her medications. Vomiting has resolved. She has no dysuria. She is active. She does use marijuana. She has had left knee arthroscopy in the past. She is a current smoker. PHYSICAL EXAMINATION: General: She is awake and alert. She is resting comfortably. Vital Signs: Temperature of 98.1, heart rate of 50, blood pressure of 129/74, respiratory rate of 16, and she is saturating 99% on room air. HEENT: She is normocephalic. Her eyes are anicteric. She has no thrush. Neck: Supple. Lungs: Clear to auscultation. Heart: Regular rate and rhythm. Abdomen: Soft. There is no distension. She complains of midepigastric pain when palpated. Extremities: Without edema. LABORATORY DATA: White count of 6.8, hemoglobin of 13.8, and platelet count of 117. BUN of 8 and creatinine 0.9 are normal. LFTs are normal. CD4 and viral load are as previously stated. Stool cultures are ordered and are pending. Blood cultures are negative and pending. CAT scan findings as previously stated. She just had a sonogram of her liver, which was unremarkable. IN SUMMARY: This is a 46-year-old woman with stable human immunodeficiency virus disease and history of hepatitis C treated, and history of chronic pancreatitis, admitted with abdominal pain, vomiting, and diarrhea all of which seem to be subsiding. I would check stool studies which have been ordered. I would advance her diet as tolerated. She should continue her ART and have asked her to have her boyfriend go home and get it. LEANN GARCIA M.D. [id number]
[2016-07-28] MEDS ORDERED: ONDANSETRON 4 MG/2 ML VIAL ONE ×2 (17:37→17:46)
[2016-07-28] MEDS ORDERED: ONDANSETRON 4 MG/2 ML VIAL IVPB ONE (18:30)
[2016-07-29] MEDS ORDERED: ZOLPIDEM TARTRATE 5 MG TABLET PO ONE (00:03)
[2016-07-29] MEDS: HYDROmorphone HCL CARPU-JECT 1 MG/1 ML DISP.SYRIN IVPB PRN ×6 (00:36→22:15)
[2016-07-29] MEDS: NICOTINE 14 MG/24 HOURS TOPICAL PATCH TD SCH (10:07)
[2016-07-29] MEDS: PANTOPRAZOLE SODIUM 40 MG/100 ML PRE-DOCKED IVPB SCH (10:39)
[2016-07-29] MEDS: SODIUM CHLORIDE 1,000 ML IV SCH ×2 (14:08→17:53)
--- NOTE | 2016-07-29 14:44 | PN ---
GI Progress Note Subjective: GI F/U PT REQUESTING HIGHER DOSAGE OF PAIN MEDS, YET DENIES HAVING PAIN AT THIS TIME HAD DIARRHEA NONE TODAY NO BLEEDING NO V/C/S FEELS HUNGRY - Objective Vital Signs: Vital Signs Temperature 98.7 F 07/29/16 14:00 Pulse Rate 64 07/29/16 14:00 Respiratory Rate 18 07/29/16 14:00 Blood Pressure 115/74 07/29/16 14:00 O2 Sat by Pulse Oximetry (%) 100 07/29/16 09:00 Constitutional: No Distress, Calm (+BS, SOFT/NT NO REBOUND OR GUARDING) Labs: CBC, BMP 07/28/16 06:30 07/28/16 06:30 Assessment/Plan ADMIT WITH PAIN AND VOMITING NOW RESOLVED NO ACUTE FINDINGS ON CT SCAN OR SONOGRAM LABS STABLE ADVANCE DIET "if" SHE NO LONGER NEEDS PAIN MEDS ABD EXAM NOT IMPROESSIVE AT THIS TIME SUPPORTIVE CARE/OBSERVE MD JAYLON
--- NOTE | 2016-07-29 15:16 | PN ---
Progress Note (short form) - Note Progress Note: Comfortable no acute distress, nausea and vomiting improved. Temperature 98.7 F 07/29/16 14:00 Pulse Rate 64 07/29/16 14:00 Respiratory Rate 18 07/29/16 14:00 Blood Pressure 115/74 07/29/16 14:00 O2 Sat by Pulse Oximetry (%) 100 07/29/16 09:00 GENERAL: Awake, alert, and fully oriented, in no acute distress. HEAD: Normal with no signs of trauma. EYES: Pupils equal, round and reactive to light, EOMI, sclera anicteric, conjunctiva clear. EARS, NOSE, THROAT: slightly dry mucous membranes. NECK: supple , no JVD LUNGS: diffusely restricted air entry, mild wheezes, bibasilar crackles HEART: Regular rate and rhythm, normal S1 and S2 ABDOMEN: Soft, mild tendereness , not distended, normoactive bowel sounds, no rebound, no masses appreciated MUSCULOSKELETAL: No CVA tenderness. EXTREMITIES: 2+ pulses, warm, well-perfused. No cyanosis. No clubbing. No peripheral edema. NEUROLOGICAL: Cranial nerves II-XII grossly intact. Normal speech. PSYCHIATRIC: Cooperative. Good eye contact. SKIN: Warm, dry, good turgor. CBCD WBC 6.8 K/mm3 (4.0-10.0) 07/28/16 06:30 RBC 4.04 M/mm3 (3.60-5.2) 07/28/16 06:30 Hgb 13.8 GM/dL (10.7-15.3) D 07/28/16 06:30 Hct 41.1 % (32.4-45.2) D 07/28/16 06:30 MCV 101.7 fl (80-96) H 07/28/16 06:30 MCHC 33.5 g/dl (32.0-36.0) 07/28/16 06:30 RDW 13.1 % (11.6-15.6) 07/28/16 06:30 Plt Count TNP 07/28/16 06:30 MPV 9.9 fl (7.5-11.1) 07/28/16 06:30 CMP Sodium 141 mmol/L (136-145) 07/28/16 06:30 Potassium 4.0 mmol/L (3.5-5.1) 07/28/16 06:30 Chloride 107 mmol/L (98-107) 07/28/16 06:30 Carbon Dioxide 23 mmol/L (21-32) 07/28/16 06:30 Anion Gap 11 (8-16) 07/28/16 06:30 BUN 8 mg/dL (7-18) D 07/28/16 06:30 Creatinine 0.9 mg/dL (0.55-1.02) D 07/28/16 06:30 Creat Clearance w eGFR > 60 (>60) 07/28/16 06:30 Random Glucose 95 mg/dL (74-106) D 07/28/16 06:30 Calcium 7.8 mg/dL (8.5-10.1) L 07/28/16 06:30 Total Bilirubin 0.3 mg/dL (0.2-1.0) D 07/28/16 06:30 AST 28 U/L (15-37) 07/28/16 06:30 ALT 25 U/L (12-78) D 07/28/16 06:30 Alkaline Phosphatase 87 U/L (45-117) D 07/28/16 06:30 Total Protein 6.3 g/dl (6.4-8.2) L D 07/28/16 06:30 Albumin 3.1 g/dl (3.4-5.0) L D 07/28/16 06:30 Current Medications Generic Name Dose Route Start Last Admin Trade Name Freq PRN Reason Stop Dose Admin Hydromorphone HCl 0.5 mg 07/27/16 17:29 07/29/16 14:08 Dilaudid Injection - IVPB 0.5 mg Q3H PRN Administration PAIN Sodium Chloride 1,000 mls @ 75 mls/hr 07/28/16 16:19 07/29/16 14:08 Normal Saline - IV 75 mls/hr ASDIR SHARON Administration Nicotine 14 mg 07/27/16 18:30 07/29/16 10:07 Nicoderm Patch - TD 14 mg DAILY SHARON Administration Pantoprazole Sodium 40 mg 07/28/16 10:00 07/29/16 10:39 Protonix 40mg Ivpb (Pre-Docked) IVPB 40 mg DAILY SHARON Administration Home Medications Medication Instructions Recorded Emtricitab/Rilpiviri/Tenof Ala 200 tab PO HS 07/27/16 [Odefsey Tablet] Omeprazole 40 mg PO DAILY 07/27/16 Patient is a 46yo F admitted through [facility] ER today for evaluation of nausea, vomiting, abdominal pain and diarrhea. The patient states that this has been occurring since saturday. Patient has a PMHx of HIV , Hep C (treated), chronic pancreatitis. #Abdominal pain continues , will continue pain meds for now. # Acute Dehydration continue IVF for now # Acute nausea & vomiting improved # No obvious colitis , no fever or chills, no further diarrhea , patient will go for GI series .GI on the basis # Acute Diarrhea , but no further diarrhea # hx of smoking on nicotine patch # Hx of HIV continue meds ID on the case # Hx of Hep C treated # hx of Chronic pancreatitis DVt Px: Scds Visit type - Emergency Visit Emergency Visit: Yes ED Registration Date: 07/27/16 Care time: The patient presented to the Emergency Department on the above date and was hospitalized for further evaluation of their emergent condition. - New Patient This patient is new to me today: No - Critical Care Critical Care patient: No
[2016-07-29] MEDS ORDERED: PATIENT'S OWN MEDICATION (NON-FORMULARY) (Omeprazole 40 MG) PO SCH (18:45)
[2016-07-30 00:06] LABS: % CD 3 POS. LYMPH. 73.3 % (57.5-86.2); % CD 4 POS LYM 43.7 % (30.8-58.5); %CD3+CD4+CD8+ 3.1 % (Not Estab.); %CD3+CD4+CD8- 40.7 % (Not Estab.); %CD3+CD4-CD8+ 28.9 % (Not Estab.); %CD3+CD4-CD8- 0.6 % (Not Estab.); ABSO. CD 3 1906 /uL (622-2402); ABSOLUTE CD 4 HELPER 1136 /uL (359-1519); AbsCD3+CD4+CD8+ 81 /uL (Not Estab.); AbsCD3+CD4-CD8+ 751 /uL (Not Estab.); AbsCD3+CD4-CD8- 16 /uL (Not Estab.); CD4/CD8 1.37 (0.92-3.72); CD4/CD8 NYSDOH RATIO 1.41 (Not Estab.); WHITE BLOOD COUNT 7.9 x10E3/uL (3.4-10.8)
[2016-07-30] MEDS: HYDROmorphone HCL CARPU-JECT 1 MG/1 ML DISP.SYRIN IVPB PRN ×3 (01:25→08:30)
[2016-07-30] MEDS: SODIUM CHLORIDE 1,000 ML IV SCH (01:25)
[2016-07-30] MEDS: PANTOPRAZOLE SODIUM 40 MG/100 ML PRE-DOCKED IVPB SCH (11:42)
[2016-07-30] MEDS: NICOTINE 14 MG/24 HOURS TOPICAL PATCH TD SCH (11:42)
--- NOTE | 2016-07-30 11:55 | DS ---
Physical Exam: SUBJECTIVE: Patient seen and examined Patient restign in bed NAD. afebrile, hemodynamically stable. no acute events. feels well. no diarrhea no n/v, no h/a, no abd pain, denies sob, chest pain, cough or dysuria. Verbalizes understanding of why she was in hospital and why its safe to go home. OBJECTIVE: Vital Signs Period Temp Pulse Resp BP Sys/Ward Pulse Ox Last 24 Hr 97.4 F-98.7 F 64-89 18-20 115-131/71-90 PHYSICAL EXAM GENERAL: The patient is awake, alert, and fully oriented, in no acute distress. HEAD: Normal with no signs of trauma. EYES: PERRL, extraocular movements intact, sclera anicteric, conjunctiva clear. ENT: moist mucous membranes. NECK: supple. LUNGS: Breath sounds equal, clear to auscultation bilaterally HEART: Regular rate and rhythm, S1, S2 ABDOMEN: Soft, nontender, nondistended, normoactive bowel sounds, no guarding, no rebound, no hepatosplenomegaly, no masses. EXTREMITIES: 2+ pulses, warm, well-perfused, no edema. NEUROLOGICAL: Cranial nerves II through XII grossly intact. Normal speech, gait not observed. PSYCH: Normal mood, normal affect. SKIN: Warm, dry LABS Laboratory Results - last 24 hr 07/27/16 19:55 WBC 7.9 Absolute Lymphs (auto) 2.6 Lymphocytes 33 Nucleated RBCs TNP Absolute CD3 Count 1906 % CD3+ Lymphocytes 73.3 Absolute CD4 [place] 1136 % CD4+ Lymphocyte 43.7 CD4/CD8 Ratio 1.37 % CD8+ Lymphocyte 32.0 Absolute CD8 Count 832 HOSPITAL COURSE: Date of Admission:07/27/16 This is a 46 yo F with PMH of HIV (odefsey), Hep C (treated), chronic pancreatitis and psychiatric issues, who presents due to Severe abd pain, vomiting and diarrhea. The pain has been persistently present for over a week and worsened on Saturday. Today she started vomiting (NBNB, 10 ep) and having brown, nonbloody nonmelenous diarrhea. Her abd pain is in b/l lower quadrants, radiating to her back. no fever. In ED CT of abdomen was done that showed possible gastric outlet obstruction and possible mild colitis. However, patient was afebrile and had no leukocytosis. Gi and surgery evaluated patient, as well as ID. It was determined that the possible obstruction was due to opiate being given in ed. ID determined that it is not colitis most likely and that patient doesn't require abx. Patients symptoms resolved and she had a negative bowel series. Her symptoms were probably caused by viral gastroenteritis. She was discharged home in good condition, having been explained the findings/ conclusions and verbalizing understanding. Date of Discharge: 07/30/16 Minutes to complete discharge: 56 (na) Discharge Summary Reason For Visit: PARTIAL GASTRIC OUTLET OBSTRUCT,HIV,HEPATITIS C Current Active Problems Colitis (Acute) Nausea & vomiting (Acute) Partial gastric outlet obstruction (Acute) HIV (human immunodeficiency virus infection) (Chronic) Condition: Good - Instructions Diet, Activity, Other Instructions: You were admitted due to nausea, vomiting and diarrhea. We ran several tests to make sure you dont have a serious abdoinal issue like colitis or obstruction. All the tests came back negative. You were seen by Gastrointerology, Surgery and Infectious disease. It was determined taht you do not have any of those serious issues. Your symptoms resolved and you are safe to go home without antibiotics. You initial symptoms were likley due to food poisoning of a stomach virus. Please follow up with your primary doctor in a week. Resume your home medications. Return to hospital if symptoms worsen. Referrals: Khurram Ram COURTESY DRIVER [Primary Care Provider] - 1 Week Disposition: HOME - Home Medications Comprehensive Discharge Medication List: Ambulatory Orders Emtricitab/Rilpiviri/Tenof Ala [Odefsey Tablet] 200 tab PO HS 07/27/16 Omeprazole 40 mg PO DAILY 07/27/16 Problem List - Problems (1) Nausea & vomiting Code(s): R11.2 - NAUSEA WITH VOMITING, UNSPECIFIED (2) Partial gastric outlet obstruction Code(s): K31.1 - ADULT HYPERTROPHIC PYLORIC STENOSIS (3) Abdominal pain Code(s): R10.9 - UNSPECIFIED ABDOMINAL PAIN (4) Hepatitis C Code(s): B19.20 - UNSPECIFIED VIRAL HEPATITIS C WITHOUT HEPATIC COMA This patient is new to me today: No Emergency Visit: Yes ED Registration Date: 07/27/16 Care time: The patient presented to the Emergency Department on the above date and was hospitalized for further evaluation of their emergent condition. Critical Care patient: No - Discharge Referral Referred to [facility] Med P.C.: No
[2016-07-30 19:07] VITALS: BP 132/69; PULSE 75; TEMP 98.1
--- NOTE | 2016-07-30 20:39 | PN ---
Teaching Attending Note Name of Resident: Roma Keenan ATTENDING PHYSICIAN STATEMENT I saw and evaluated the patient. I reviewed the resident's note and discussed the case with the resident. I agree with the resident's findings and plan as documented. Patient is comfortable with no acute distress. No fever or chills. Vital Signs Temperature 98.1 F 07/30/16 10:00 Pulse Rate 75 07/30/16 10:00 Respiratory Rate 18 07/30/16 10:00 Blood Pressure 132/69 07/30/16 10:00 O2 Sat by Pulse Oximetry (%) 100 07/30/16 09:00 CBCD WBC 6.8 K/mm3 (4.0-10.0) 07/28/16 06:30 RBC 4.04 M/mm3 (3.60-5.2) 07/28/16 06:30 Hgb 13.8 GM/dL (10.7-15.3) D 07/28/16 06:30 Hct 41.1 % (32.4-45.2) D 07/28/16 06:30 MCV 101.7 fl (80-96) H 07/28/16 06:30 MCHC 33.5 g/dl (32.0-36.0) 07/28/16 06:30 RDW 13.1 % (11.6-15.6) 07/28/16 06:30 Plt Count TNP 07/28/16 06:30 MPV 9.9 fl (7.5-11.1) 07/28/16 06:30 CMP Sodium 141 mmol/L (136-145) 07/28/16 06:30 Potassium 4.0 mmol/L (3.5-5.1) 07/28/16 06:30 Chloride 107 mmol/L (98-107) 07/28/16 06:30 Carbon Dioxide 23 mmol/L (21-32) 07/28/16 06:30 Anion Gap 11 (8-16) 07/28/16 06:30 BUN 8 mg/dL (7-18) D 07/28/16 06:30 Creatinine 0.9 mg/dL (0.55-1.02) D 07/28/16 06:30 Creat Clearance w eGFR > 60 (>60) 07/28/16 06:30 Random Glucose 95 mg/dL (74-106) D 07/28/16 06:30 Calcium 7.8 mg/dL (8.5-10.1) L 07/28/16 06:30 Total Bilirubin 0.3 mg/dL (0.2-1.0) D 07/28/16 06:30 AST 28 U/L (15-37) 07/28/16 06:30 ALT 25 U/L (12-78) D 07/28/16 06:30 Alkaline Phosphatase 87 U/L (45-117) D 07/28/16 06:30 Total Protein 6.3 g/dl (6.4-8.2) L D 07/28/16 06:30 Albumin 3.1 g/dl (3.4-5.0) L D 07/28/16 06:30 Home Medications Medication Instructions Recorded Emtricitab/Rilpiviri/Tenof Ala 200 tab PO HS 07/27/16 [Odefsey Tablet] Omeprazole 40 mg PO DAILY 07/27/16 GI series are negative ASSESSMENT AND PLAN: Patient is a 46yo F admitted through [facility] ER today for evaluation of nausea, vomiting, abdominal pain and diarrhea. The patient states that this has been occurring since saturday. Patient has a PMHx of HIV , Hep C (treated), chronic pancreatitis. #Abdominal pain resolved # s/p Acute Dehydration # Acute nausea & vomiting improved # No obvious colitis , no fever or chills, no further diarrhea , patient will go for GI series .GI on the basis # s/p Acute Diarrhea , but no further diarrhea # hx of smoking on nicotine patch # Hx of HIV continue meds ID on the case # Hx of Hep C treated # hx of Chronic pancreatitis # Hx of Pscy.continue meds follow up with
== END 2016-07-30 15:18 | disposition home or self-care (01) | DRG 247 ==
LOC: JER 09:09 → JERBED 15:06 → J7W 16:41
PROVIDERS: ADMIT Internal Medicine; ATTEND Internal Medicine
DX: K56.69 Other intestinal obstruction (principal); E86.0 Dehydration; R11.2 Nausea with vomiting, unspecified; K86.1 Other chronic pancreatitis; K52.89 Other specified noninfective gastroenteritis and colitis; K44.9 Diaphragmatic hernia without obstruction or gangrene; F17.210 Nicotine dependence, cigarettes, uncomplicated; Z21 Asymptomatic human immunodeficiency virus [HIV] infection status; Z86.19 Personal history of other infectious and parasitic diseases
CPT/HCPCS: 36415; 71020-TC; 74020-TC; 74176-TC; 74240-TC; 76705-TC; 80053; 81003; 83605; 83690; 83735; 84100; 85025; 86359; 86360; 87040; 87045; 87046; 87177; 87205; 87209; 87324; 87328; 87329; 87449; 93005; 93010; 99285-25; Q9967

== ENCOUNTER 2016-08-10 09:09 | Emergency (ER) | payer OTHER ==
[2016-08-10 09:32] VITALS: BP 140/90; PULSE 86; TEMP 97.8; BMI 24.0
--- NOTE | 2016-08-10 09:33 | PDOC ---
History of Present Illness <Prosper Peoples - Last Filed: 08/10/16 13:22> - General History Source: Patient, Family Exam Limitations: No Limitations, Other - History of Present Illness Initial Comments: 08/10/16 10:28 The patient is a 46 year old female, with a significant past medical history of pancreatitis, HIV, Hepatitis C, and partially obstructed gastric outlet who presents to the emergency department complaining of abdominal pain, nausea, and vomiting since earlier this morning. 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 As per medical records, the patient presented to the ED approximately 2 weeks ago, where she was admitted for gastric outlet syndrome. At that time a CT of her abdomen and pelvis revealed distension of the stomach. Family member accompanying the patient reports the patient was feeling well since she was discharged. He reports the patient has an appointment with her GI doctor at [address] [place] [address] on August 30, 2016. However, the patient reports her abdominal pain today was so severe she could not wait until her appointment. The patient does not report any alleviating or exacerbating factors. The patient denies taking any medication for her pain. The patient reports increased bowel movements since this morning(non-watery). The patient denies any constipation, fever, chills, cough, headache, or dizziness. The patient denies any dysuria, hematuria , frequency, or urgency. The patient denies any recent travel or sick contacts. The patient is unable to provide any other history due to abdominal pain. Allergies: Iodine, Morphine, Shellfish derived Past Surgical History: Left knee surgery Social History: Current everyday smoker(20 cigarettes per day). Marijuana use. Denies alcohol or other recreational drug use. <Rudy Valdes - Last Filed: 08/10/16 16:53> - General Chief Complaint: Pain, Acute Stated Complaint: ABDOMINAL PAIN Time Seen by Provider: 08/10/16 09:30 Past History - Past Medical History Anemia: No Asthma: No Cancer: No Cardiac Disorders: No CVA: No COPD: No CHF: No Dementia: No Diabetes: No GI Disorders: Yes (pancreatitis) Disorders: No HTN: No Hypercholesterolemia: No HIV: Yes Liver Disease: Yes Psychiatric Problems: Yes (Multiple hospitalizations since age 11.) Seizures: No Thyroid Disease: No - Surgical History Abdominal Surgery: No Appendectomy: No Cardiac Surgery: No Cholecystectomy: No Lung Surgery: No Neurologic Surgery: No Orthopedic Surgery: Yes (L. Knee) - Psycho/Social/Smoking Cessation Hx Anxiety: Yes Suicidal Ideation: No Smoking Status: Yes Smoking History: Current every day smoker Have you smoked in the past 12 months: Yes Number of Cigarettes Smoked Daily: 20 If you are a former smoker, when did you quit?: 03/15/2013 Cigars Per Day: 0 'Breaking Loose' booklet given: 07/14/12 Hx Alcohol Use: No Drug/Substance Use Hx: No (pt stopped drug use X 1 year, admits using marijuana) Substance Use Type: Marijuana Hx Substance Use Treatment: No <Prosper Peoples - Last Filed: 08/10/16 13:22> <Rudy Valdes - Last Filed: 08/10/16 16:53> - Past Medical History Allergies/Adverse Reactions: Allergies Allergy/AdvReac Type Severity Reaction Status Date / Time iodine Allergy Swelling Verified 08/10/16 09:32 morphine Allergy Hives Verified 08/10/16 09:32 shellfish derived Allergy Swelling Verified 08/10/16 09:32 Home Medications: Ambulatory Orders Emtricitab/Rilpiviri/Tenof Ala [Odefsey Tablet] 200 tab PO HS 07/27/16 Omeprazole 40 mg PO DAILY 07/27/16 Omeprazole 20 mg PO DAILY #30 capsule. 08/07/16 Unobtainable 08/10/16 Review of Systems - Review of Systems Able to Perform ROS?: Yes Comments:: 08/10/16 10:28 GENERAL/CONSTITUTIONAL: No fever or chills. HEAD, EYES, EARS, NOSE AND THROAT: No change in vision. No ear pain or discharge. No sore throat. CARDIOVASCULAR: No chest pain or shortness of breath. RESPIRATORY: No cough, wheezing, or hemoptysis. GASTROINTESTINAL: Yes: +abdominal pain, +nausea, +vomiting, +increased bowel movements. No constipation. GENITOURINARY: No dysuria, frequency, or change in urination. MUSCULOSKELETAL: No joint or muscle swelling or pain. No neck or back pain. SKIN: No rash NEUROLOGIC: No headache, vertigo, loss of consciousness, or change in strength/ sensation. ENDOCRINE: No increased thirst. No abnormal weight change. HEMATOLOGIC/LYMPHATIC: No anemia, easy bleeding, or history of blood clots. ALLERGIC/IMMUNOLOGIC: No hives or skin allergy. <Rudy Valdes - Last Filed: 08/10/16 16:53> *Physical Exam - Vital Signs Last Vital Signs Temp Pulse Resp BP Pulse Ox 97.8 F 86 18 140/90 100 08/10/16 09:10 08/10/16 09:10 08/10/16 09:10 08/10/16 09:10 08/10/16 09:10 - Physical Exam Comments: 08/10/16 10:30 GENERAL: Awake, alert, and fully oriented. Patient appears uncomfortable on examination. Moaning secondary to abdominal pain. HEAD: No signs of trauma EYES: PERRLA, EOMI, sclera anicteric, conjunctiva clear ENT: Auricles normal inspection, hearing grossly normal, nares patent, oropharynx clear without exudates. Moist mucosa NECK: Normal ROM, supple, no lymphadenopathy, JVD, or masses LUNGS: Breath sounds equal, clear to auscultation bilaterally. No wheezes, and no crackles HEART: Regular rate and rhythm, normal S1 and S2, no murmurs, rubs or gallops ABDOMEN: Tenderness epigastrically. Normoactive bowel sounds. No guarding, no rebound. No masses EXTREMITIES: Normal range of motion, no edema. No clubbing or cyanosis. No cords, erythema, or tenderness NEUROLOGICAL: Cranial nerves II through XII grossly intact. Normal speech, normal gait SKIN: Warm, Dry, normal turgor, no rashes or lesions noted. <Rudy Valdes - Last Filed: 08/10/16 16:53> Heart Score/ECG Review - ECG Impressions Comment:: 08/10/16 11:37 Vent. Rate: 75 bpm IMPRESSION: Normal sinus rhythm with sinus arrhythmia. Possible left atrial enlargement. <Rudy Valdes - Last Filed: 08/10/16 16:53> ED Treatment Course - LABORATORY CBC & Chemistry Diagram: 08/10/16 10:30 08/10/16 10:30 <Prosper Peoples - Last Filed: 08/10/16 13:22> - LABORATORY CBC & Chemistry Diagram: 08/10/16 10:30 08/10/16 10:30 - RADIOLOGY Radiograph Interpretation: 08/10/16 16:51 EXAM: X-Ray Abdomen INTERPRETED BY: Dr. Majano REVIEWED BY: Dr. Peoples IMPRESSION: Nonspecific, nonobstructive gas pattern <Rudy Valdes - Last Filed: 08/10/16 16:53> Medical Decision Making - Medical Decision Making 08/10/16 13:18 Urine still Pending 08/10/16 13:19 Patient angry and complaining loudly in the hallway. Ask her to go back to her room so we could talk in a more private setting- she ripped her IV out and left the ED without any further discussion <Prosper Peoples - Last Filed: 08/10/16 13:22> *DC/Admit/Observation/Transfer - Discharge Dispostion Admit: No - Attestations Physician Attestion: 08/10/16 09:32 I, Dr. Prosper Peoples, attest that this document has been prepared under my direction and personally reviewed by me in its entirety. I further attest, that it accurately reflects all work, treatment, procedures and medical decision -making performed by me. <Prosper Peoples - Last Filed: 08/10/16 13:22> - Attestations Scribe Attestion: 08/10/16 09:41 Documentation prepared by Rudy Valdes, acting as medical coding specialist for Prosper Peoples DO. <Rudy Valdes - Last Filed: 08/10/16 16:53> Diagnosis at time of Disposition: At risk for elopement from healthcare setting, Partial gastric outlet obstruction, Abdominal pain - Discharge Dispostion Disposition: ELOPED - Referrals Referrals: STAFF,NOT ON [Primary Care Provider] -
[2016-08-10] MEDS ORDERED: SODIUM CHLORIDE 1,000 ML IV STA (09:39)
[2016-08-10] MEDS ORDERED: ONDANSETRON 4 MG/2 ML VIAL IVPB ONE (09:39)
[2016-08-10] MEDS ORDERED: HYDROmorphone HCL CARPU-JECT 2 MG/1 ML DISP.SYRIN IVPUSH ONE (09:54)
[2016-08-10] MEDS ORDERED: ONDANSETRON 4 MG/2 ML VIAL ONE (09:58)
[2016-08-10] MEDS ORDERED: HYDROmorphone HCL CARPU-JECT 2 MG/1 ML DISP.SYRIN ONE (09:58)
[2016-08-10 11:11] LABS: ALBUMIN 4.2 g/dl (3.4-5.0); ANION GAP 10 (8-16); BILIRUBIN,TOTAL 0.5 mg/dL (0.2-1.0); CALCIUM 8.7 mg/dL (8.5-10.1); CO2 22 mmol/L (21-32); CREATININE 1.1 mg/dL (0.55-1.02); GLUCOSE,RANDOM 122 mg/dL (74-106); SGPT/ALT 28 U/L (12-78); TOT PROT 8.3 g/dl (6.4-8.2)
[2016-08-10 11:14] LABS: ALK PHOS 109 U/L (45-117); TROPONIN I < 0.02 ng/ml (0.00-0.05)
[2016-08-10 11:15] LABS: SGOT/AST 30 U/L (15-37)
[2016-08-10 11:16] LABS: INR 1.1 (0.82-1.09); PROTHROMBIN TIME (PATIENT) 12.1 SEC (9.98-11.88)
[2016-08-10 11:25] LABS: BASOPHIL 0.7 % (0-2.0); EOSINOPHIL 0.3 % (0-4.5); MCH 34.1 pg (25.7-33.7); MCHC 33.4 g/dl (32.0-36.0); MEAN PLT VOLUME 9.8 fl (7.5-11.1); NEUTROPHILS 80.5 % (42.8-82.8); PLATELET COUNT 115 K/MM3 (134-434); RDW 13.2 % (11.6-15.6); WHITE BLOOD COUNT 9.1 K/mm3 (4.0-10.0)
--- NOTE | 2016-08-11 18:34 | EKG ---
Test Reason : Blood Pressure : / mmHG Vent. Rate : 075 BPM Atrial Rate : 075 BPM P-R Int : 124 ms QRS Dur : 084 ms QT Int : 414 ms P-R-T Axes : 077 051 075 degrees QTc Int : 462 ms NORMAL SINUS RHYTHM WITH SINUS ARRHYTHMIA POSSIBLE LEFT ATRIAL ENLARGEMENT BORDERLINE ECG WHEN COMPARED WITH ECG OF 27-JUL-2016 10:12, NO SIGNIFICANT CHANGE WAS FOUND Confirmed by DARREN CRUZ, ARIANE ([id number]) on 08/11/2016 6:34:18 PM Referred By: Confirmed By:ARIANE BANKS MD
== END 2016-08-10 13:25 | disposition left against medical advice (07) ==
LOC: JER 09:09
PROC: 3E0337Z Introduction of Electrolytic and Water Balance Substance into Peripheral Vein, Percutaneous Approach (ICD-10-PCS; principal; 2016-08-10)
PROC: 3E033NZ Introduction of Analgesics, Hypnotics, Sedatives into Peripheral Vein, Percutaneous Approach (ICD-10-PCS; 2016-08-10)
PROC: 3E033GC Introduction of Other Therapeutic Substance into Peripheral Vein, Percutaneous Approach (ICD-10-PCS; 2016-08-10)
DX: K31.1 Adult hypertrophic pyloric stenosis (principal); K85.90 Acute pancreatitis without necrosis or infection, unspecified; B18.2 Chronic viral hepatitis C; Z21 Asymptomatic human immunodeficiency virus [HIV] infection status; F17.210 Nicotine dependence, cigarettes, uncomplicated
CPT/HCPCS: 36415; 74020-TC; 80053; 81003; 82550; 82553; 83605; 83690; 84484; 84703; 85025; 85610; 93005; 93010; 96361; 96374; 96375; 99282-25